=== PATIENT | female | born 1995 | race Caucasian/White ===

== ENCOUNTER 2020-11-20 20:43 | Emergency (ER) | payer OTHER ==
[2020-11-20] MEDS ORDERED: IBUPROFEN800 MG PO (21:22)
[2020-11-20] MEDS ORDERED: AUGMENTIN 875-1 EACH PO (21:22)
== END 2020-11-20 21:38 | disposition home or self-care (01) ==
LOC: FER 20:43
DX: H66.92 Otitis media, unspecified, left ear (principal); F17.210 Nicotine dependence, cigarettes, uncomplicated
CPT/HCPCS: 99282; Q0163